=== PATIENT | female | born 1985 | race Caucasian/White ===

== ENCOUNTER 2024-06-11 15:10 | Outpatient (CLI) | payer OTHER, SELFPAY ==
--- NOTE | 2024-06-11 15:30 | CRLHL7_ITS ---
For Patients: As a result of the Century Cures Act, medical imaging exams and procedure reports are released immediately into your electronic medical record. You may view this report before your referring provider. If you have questions, please contact your health care provider. EXAM: MRI OF THE RIGHT FOOT, WITHOUT CONTRAST CLINICAL INDICATION: Foot pain. Painful growth. PRIOR SURGERY: None. COMPARISON PLAIN FILMS: 09 June 2024 COMPARISON CROSS-SECTIONAL IMAGING STUDIES: None. TECHNICAL: Coronal T1 and STIR, axial T1 and STIR and sagittal STIR pre contrast sequences. 10 mL Dotarem IV contrast. T1 fat sat postcontrast sequences in all 3 planes centered on the forefoot. 1.5 Ebony MR scanner. FINDINGS: OSSEOUS STRUCTURES: No fracture, bone marrow contusion, stress change or marrow replacement process. JOINT SPACES: Joint spaces within the visualized forefoot, at the midfoot-forefoot junction and within the midfoot are maintained. LIGAMENTS: The Lisfranc ligament is intact. TMT joint alignment is maintained. The collateral ligaments of the MTP joints are intact. TENDONS AND MUSCLES: The flexor and extensor tendons are intact. The distal peroneus longus and brevis tendons are intact. No muscle atrophy or edema. SOFT TISSUES: The visualized plantar aponeurosis is intact. No Thibodeaux???s neuroma or intermetatarsal bursitis. Globular heterogeneous intermediate to low T1 low through high STIR nonenhancing focus in the plantar soft tissues of the 3rd distal toe to the medial margin of the distal phalanx. No enhancement. Dense mineralization in irregular fashion on the comparison plain film. Process expands the soft tissues. No tenosynovitis. No bone abnormality appreciated. IMPRESSION: 1. 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 Other causes of benign soft tissue mineralization including myositis ossificans should be considered particularly if there is history of trauma. Dictated by Shmuel Alfredo MD @ 06/12/2024 9:39:05 AM (Electronically Signed)
== END 2024-06-11 15:11 | disposition home or self-care (01) ==
LOC: MRI 15:13
PROVIDERS: PCP Family Medicine; Visit Provider Podiatrist
DX: M79.671 Pain in right foot (principal)
CPT/HCPCS: 73720; A9575

== ENCOUNTER 2024-07-16 06:06 | Day surgery (SDC) | payer OTHER, SELFPAY ==
--- OUTSIDE RECORDS SUMMARY | 2024-07-16 06:09 | XMS_ITS | Clinical Summary ---
Author Organization [facility] Address [address] [place] [id number] Care Team Providers Care Access Coordinator Name Role Phone No Ref-Primary, Physician Primary Care Provider Social History Tobacco Use Types Packs/Day Years Used Date Smoking Tobacco: Never Assessed Adolescent Education Answer Date Record ed Getting School Help Needed Not on file 04/28 Comments Unknown Sex and Gender Information Value Date Recorded Sex Assigned at Not on file Legal Sex Female 9:51 AM CDT Gender Identity Not on file Sexual Orientation Not on file Plan of Treatment Not on file Care Teams Access Coordinator Relationship Specialty Start Date End Date No Ref-Primary, Physician PCP - General 04/05/21
--- OUTSIDE RECORDS SUMMARY | 2024-07-16 06:09 | XMS_ITS | Referral Summary ---
Author Organization [facility] Address [address] [place] [id number] Care Team Providers Care Plastics Supervisor Name Role Phone No Ref-Primary, Physician Primary [...] of Treatment Not on file Care Teams Plastics Supervisor Relationship Specialty Start Date End Date No Ref-Primary, Physician PCP - General 04/05/21
[2024-07-16 06:28] VITALS: BP 115/80; PULSE 81; RESP 16; TEMP 36.6; O2SAT 97; BMI 19.3
[2024-07-16] MEDS: SODIUM CHLORIDE 0.9 % (FLUSH) 10 ML SYRINGE IVF (06:35)
[2024-07-16 06:36] LABS: Ur HCG Qualitative* Negative (Negative)
[2024-07-16] MEDS: CEFAZOLIN 2 GM INJ IVP (07:37)
--- NOTE | 2024-07-16 07:49 | CRLHL7_ITS ---
For Patients: As a result of the Cures Act, medical imaging exams and procedure reports are released immediately into your electronic medical record. You may view this report before your referring provider. If you have questions, please contact your health care provider. Indication: Third toe mass excision, possible digit amputation Technique: One fluoroscopic image of the right forefoot. Fluoroscopic time 1.8 seconds. IMPRESSION: Fluoroscopic guidance for excision of soft tissue densities along with partial excision of the 3rd toe distal phalanx. Dictated by Heladio Ortiz MD @ 07/16/2024 9:08:41 AM (Electronically Signed)
[2024-07-16] MEDS: BUPIVACAINE 0.25% 30 ML INJECTION (07:53)
[2024-07-16 08:25] VITALS: BP 96/70; PULSE 66; RESP 16; TEMP 36.1; O2SAT 99
[2024-07-16 08:45] VITALS: BP 114/74; PULSE 68; RESP 16; O2SAT 98
[2024-07-16 09:00] VITALS: BP 109/79; PULSE 62; RESP 16; O2SAT 99
--- NOTE | 2024-07-16 09:11 | W.PODPROC_ITS ---
Date of Procedure: 07/16/24 Surgeon: Rinku Mooney DPM Co-Surgeon: Saskia Marquis DPM Pre-op Diagnosis: Right 3rd toe mass Post-op Diagnosis: Right 3rd toe mass Type of Procedure: 1. Partial Digit Amputation Third Toe, Right foot 2. Excision Mass of Third Toe, Right foot Indications: Painful, enlarging mass with ulceration to the right 3rd toe recalcitrant to conservative cares Procedure Description: The patient was identified prior to being brought into the operating room using the name and date of as identifiers. The intended surgical plan was again reviewed in detail with the patient as well as the rationale for surgery, the most common risks, complications, and expected recovery course. The patient was given the opportunity to ask questions which were answered to the best of my ability. The patient ultimately voiced no questions or concerns, and agreed to proceed forward with the surgery as planned. The patient was brought from the preoperative holding area to the operating room, and placed on the operating table in the supine position. At this time, a time-out was performed to identify the proper patient, site, and operation to be performed. A well-padded pneumatic ankle tourniquet was applied to the patient's right ankle. A preoperative injection of 0.25% Marcaine plain was administered in a digital block fashion to the patient's right third toe. The operative foot was then scrubbed, prepped, and draped in the normal sterile fashion. The right lower extremity was exsanguinated and the pneumatic ankle tourniquet was inflated to a level of 250 mmHg. Attention was directed to the operative foot and the incision was marked around the distal portion of the right 3rd toe, in a fish-mouth type fashion which encompassed the mass and open ulceration. The incision was made through skin and carried deep to the level of bone and continued completely around the toe and mass. The mass was hard to palpation and well encapsulated. Care was taken to preserve the plantar flap of skin and deep tissue to provide adequate closure of the amputation site.The plantar tissue flap was freed from the mass with a #15 blade, allowing direct visualization of the distal phalanx, which was disar ticulated through the distal interphalangeal joint and removed with the mass in toto. The specimen was passed from the field and sent to pathology. The surgical wound was copiously irrigated. Deep tissues were approximated with absorbable suture and the skin edges approximated without tension using non-absorbable sutures. A postoperative dressing of xeroform, 4 x 4's, traci, cast padding, and an HERRERA bandage was applied to the patient's right foot. Upon release of the pneumatic ankle tourniquet, immediate reperfusion of toes 1 through 5 was noted. The patient was transferred from the operating room to the post anesthesia care unit with vital signs stable and vascular status intact to the right lower extremity. The patient appeared to tolerate both the procedure and anesthesia well. Anesthesia: MAC and local Hemostasis: ankle (24 minutes of well padded ankle tourniquet time) Estimated blood loss (mL): 5 Implants: None Specimens: specimen obtained, sent to pathology (1. Right 3rd toe mass) Disposition: PACU
--- NOTE | 2024-07-16 09:12 | W.ANESCHARGE ---
Anesthesia Charges Start Date/Time Anesthesia Start Date: 07/16/24 Anesthesia Start Time: 07:30 Stop Date/Time Anesthesia Stop Date: 07/16/24 Anesthesia Stop Time: 08:28
--- NOTE | 2024-07-16 09:50 | W.ANESCHARGE ---
Anesthesia Charges Start Date/Time Anesthesia Start Date: 07/16/24 Anesthesia Start Time: 07:30 Stop Date/Time Anesthesia Stop Date: 07/16/24 Anesthesia Stop Time: 08:28
== END 2024-07-16 09:22 | disposition home or self-care (01) ==
LOC: OR 06:07
PROVIDERS: Anesthesiology; PCP Family Medicine; Visit Provider Podiatrist
PROC: (CPT 28825; principal; 2024-07-16 07:30)
DX: R22.41 Localized swelling, mass and lump, right lower limb (principal); L97.519 Non-pressure chronic ulcer of other part of right foot with unspecified severity; D16.31 Benign neoplasm of short bones of right lower limb
CPT/HCPCS: 28825; 01480; 73620; 76000; 81025; 88305; 88311; J0665; J0690; J2250; J2704; J3490